=== PATIENT | male | born 1985 | race Caucasian/White ===

== ENCOUNTER 2024-11-25 17:09 | Emergency (ER) | payer BC, SELFPAY ==
[2024-11-25 17:25] VITALS: BP 161/107
[2024-11-25 17:48] LABS: Urine Character Slightly Cloudy (Clear)
[2024-11-25 17:49] LABS: Hematocrit 42.8 % (39.0-52.0); Hemoglobin 15.0 g/dL (13.0-18.0); Mean Corp Hgb Conc. 35.0 g/dL (33.0-37.0); Mean Corpuscular Volume 85.9 fL (80.0-94.0); Nucleated Red Blood Cells % 0 % (-); Platelet Count 206 10^3/uL (130-400); Red Cell Dist. Width 12.7 % (11.5-14.5)
[2024-11-25 17:57] LABS: Urine Red Blood Cell 16-20 /HPF (0-2); Urine Squamous Cell 0-2 /LPF (Few); Urine White Cell 16-20 /HPF (0-5)
[2024-11-25 18:04] LABS: ALT (SGPT) 71 U/L (0-50); AST (SGOT) 35 U/L (17-59); Albumin 5.3 g/dl (3.5-5.0); Alkaline Phosphatase 53 U/L (38-126); Blood Urea Nitrogen 12 mg/dl (9-20); Calcium 9.4 mg/dl (8.4-10.2); Carbon Dioxide 26 mmol/L (22-30); Chloride 107 mmol/L (98-107); Glucose 107 mg/dl (70-99); Potassium 4.2 mmol/L (3.5-5.1); Sodium 141 mmol/L (135-145); Total Protein 7.8 g/dl (6.3-8.2); eGFR > 60.00
--- NOTE | 2024-11-25 21:17 | ED.GENMED ---
Addendum entered and electronically signed by Alfredo Randolph PA-C 11/28/24 06:10:
On TMP-SMX, appropriate per C&S
Original Note:
History of Present Illness
General
Chief Complaint: Male Genito-Urinary Symptoms
Source: patient and spouse
Time Seen by Provider: 11/25/24 21:08
History of Present Illness
History of Present Illness:
39-year-old male presents the emergency room complaining of hematuria, urgency, dysuria. Symptoms began this afternoon. Patient felt well earlier today and around 3:00 had a sudden onset of the sense of urgency. When he urinated he passed some
blood. Patient denies any fever or chills. He denies any back pain. No history of similar symptoms.
Phy Exam
Physical Exam
Physical Exam:
General: Awake, Alert, Oriented X3. No acute distress.
Vitals: unremarkable
Head: Atraumatic
Eyes: Pupils equal, EOMI
Throat: Airway intact, no exudates
Neck: Trachea midline
Lungs: Clear and equal b/l
Heart: Regular rate, no murmurs
Abd: Soft, Nontender, No pulsatile mass
Back: No CVA tenderness to percussion
Neuro: Nonfocal
Skin: Warm, dry, no rash
Extremities: pulses equal b/l, no edema
Course
Orders/Labs/Results
Orders:
Orders
11/25/24 17:42
CMP [Comprehensive Metabolic Panel] Urgent
Complete Blood Count/With Diff Urgent
Urinalysis Reflex To Culture Urgent
Date Specimen was Collected: 11/25/24
Time Specimen was Collected: 17:29
Urine Microscopic Reflex Cult Urgent
Urine Culture Urgent
BALAJI Source: U
Specimen Description:
Date Specimen was Collected: 11/25/24
Time Specimen was Collected: 17:29
11/25/24 21:16
CT Abd/pel Without Iv Or Oral Urgent
Comment:
Reason For Exam: hematuria, pain
Phenazopyridine HCl [Pyridium] 200 mg PO NOW STA
11/25/24 23:28
Sulfamethox./Trimethoprim Ds [Bactrim Ds 800 mg/160 mg] 1 tablet PO NOW STA
Abnormal Lab Results
11/25/24
17:42
WBC 12.5 H 10^3/uL
(4.8-10.8)
MPV 10.8 H fL
(7.4-10.4)
Absolute Neuts (auto) 9.0 H 10^3/uL
(1.4-6.5)
Absolute Monos (auto) 1.1 H 10^3/uL
(0.1-0.6)
Lymphocytes % 17.7 L %
(20.5-51.1)
Glucose 107 H mg/dl
(70-99)
ALT 71 H U/L
(0-50)
Albumin 5.3 H g/dl
(3.5-5.0)
Ur Occult Blood Reflex 4+ A
(Negative)
Urine Urobilinogen 3+ A
(Neg - 1+)
Leukocyte Esterase Rfl 3+ A
(Negative)
Urine RBC 16-20 A /HPF
(0-2)
Urine WBC (Reflex) 16-20 A /HPF
(0-5)
Urine Bacteria (Reflex) Many A
(Negative)
Urine Albumin (Reflex) 3+ A
(Neg - Trace)
11/25/24 17:42
11/25/24 17:42
Vital Signs
Initial and Last Documented VS:
Initial Vital Signs
Temp Pulse Resp BP Pulse Ox
98.1 F 104 18 161/107 96
11/25/24 17:25 11/25/24 17:25 11/25/24 17:25 11/25/24 17:25 11/25/24 17:25
Last Documented Vital Signs
Temp Pulse Resp BP Pulse Ox
99.6 F 77 18 144/88 96
11/25/24 23:20 11/25/24 23:20 11/25/24 23:20 11/25/24 23:20 11/25/24 23:20
MDM/Problems Addressed
Differential Diagnosis Includes:
Cystitis, hemorrhagic cystitis, kidney stone, mass
MDM/Problems Addressed:
Patient presents with frequency, urgency, hematuria. Urine consistent with UTI. Imaging shows no kidney stone or other structural abnormality. Will treat with Bactrim. Recommend close follow-up with urology. Given contact information for local
urologist that the patient does not live locally and will probably follow-up with someone closer to his home.
*Radiology
Radiology exam reviewed: radiology read reviewed
*Pulse Oximetry
SaO2: 96
Oxygen Mode of Delivery: Room air
Patient hypoxic: no
*Critical Care Note
Total Time (30-74mins, 75-104mins- exclusive of procedures): Not Applicable
ED Attending Note
-
Portions of this chart may have been created with voice recognition software.� Occasional wrong word or��sound alike� substitutions may have occurred due to the inherent limitations of voice recognition software.
Discharge Plan
Departure
Patient Disposition: Home (Routine Discharge)
Date of Disposition: 11/25/24
Time of Disposition: 23:29
Patient with high blood pressure during this ER visit?: Yes
Condition: Good
Discharge Problem:
Acute UTI, Acute hemorrhagic cystitis
Instructions: Blood in the Urine (Hematuria), Adult (DC), Urinary tract infection in adults - ED discharge instructions, BLOOD PRESSURE
Prescriptions:
New
sulfamethoxazole-trimethoprim [Bactrim DS] 800-160 mg tablet
1 tab PO BID 7 Days Qty: 14 0RF
Referrals:
Jr Gray MD [Active, Urology]
NONE,* [Family Provider, Internal Medicine]
Activity Restrictions/Additional Instructions:
I believe the symptoms you are having are related to urinary tract infection. Not uncommonly a urinary tract infection can cause some bleeding in the bladder. It is important that you follow-up with a urologist. I have given you contact
information for one of our urologist here though I understand you do not live close to here. Please call urologist in your area to arrange follow-up. You also should make an appoint with a primary care provider. Your blood pressure is a little
elevated. This might be just from the excitement of being in the emergency room but should be rechecked to make sure that you do not actually have high blood pressure. Return to the emergency room if you develop fever, back pain or feel you are
getting worse despite antibiotics.
Interventions
Interventions:
*Risk Screen - Suicide Last Done: 11/25/24 17:25
*General Assessment Last Done: 11/25/24 17:25
*Neglect/Abuse Screening Last Done: 11/25/24 17:25
*ED- Fall Risk Assessment Last Done: 11/25/24 23:59
*ED COVID-19 Vaccine History Last Done: 11/25/24 17:25
*Nursing Disposition Last Done: 11/25/24 23:59
ED-Male Genitourinary Assessment Last Done: 11/25/24 20:14
Discharge Date and Time
Discharge Date/Time: 11/26/24 00:00
Print Language: [id number]
[2024-11-25 23:20] VITALS: BP 144/88
[2024-11-25] MEDS: BACTRIM DS 800 MG/160 MG 1 TABLET PO (23:57)
== END 2024-11-26 | disposition home or self-care (01) ==
LOC: EMR 17:09
PROVIDERS: Emergency Medicine; EMERGENCY PHYSICIAN Emergency Medicine
DX: N30.01 Acute cystitis with hematuria (principal)
CPT/HCPCS: 99284; 74176; 80053; 81003; 81015; 85025; 87077; 87086; 87186